=== PATIENT | female | born 1980 | race African-American/Black ===

== ENCOUNTER 2024-05-01 19:12 | Emergency (ER) | payer OTHER ==
[~2024-05-01] VITALS: Ht 165.1 cm; Wt 59.0 kg
[2024-05-01 19:15] VITALS: O2SAT 97
[2024-05-01] MEDS: DIPHENHYDRAMINE 50MG/ML VIAL IM STA (19:50)
[2024-05-01] MEDS: HALOPERIDOL LACTATE 5MG/ML VIAL IM STA (19:50)
[2024-05-01 20:34] LABS: BASOPHILS % 0.3 % (0.0-2.0); EOSINOPHILS % 0.1 % (0.0-5.0); HEMOGLOBIN. 14.6 g/dL (12.0-16.0); MEAN CORPUSCULAR HEMOGLOBIN 32.7 pg (28.0-32.0); MEAN CORPUSCULAR HGB CONC 33.9 g/dL (31.0-37.0); MEAN CORPUSCULAR VOLUME 96.5 fL (81.0-99.0); MONOCYTES % 5.8 % (2.0-8.0); NEUTROPHILS % 69.8 % (40.0-76.0); PLATELET 325 x1000/uL (130-400); RED BLOOD CELL COUNT 4.46 mill/uL (4.2-5.4); RED CELL DISTRIBUTION WIDTH 13.5 % (11.6-14.6)
[2024-05-01 20:40] LABS: CHLORIDE 101 mEq/L (98-107); CLARITY URINE CLOUDY (CLEAR); COLOR URINE DARK YELLOW (YELLOW); GLUCOSE URINE NEGATIVE (NEGATIVE); KETONES URINE TRACE (NEGATIVE); LEUKOCYTE ESTERASE URINE NEGATIVE (NEGATIVE); NITRITE URINE NEGATIVE (NEGATIVE); OCCULT BLOOD URINE NEGATIVE (NEGATIVE); PH URINE 5.5 (4.5-8.0); POTASSIUM 4.2 mEq/L (3.5-5.1); PROTEIN URINE 1+ (NEGATIVE); SODIUM 139 mEq/L (136-145); SPECIFIC GRAVITY URINE 1.022 (1.005-1.030)
[2024-05-01 20:41] LABS: CALCIUM 9.7 mg/dL (8.7-10.4); CARBON DIOXIDE 22 mEq/L (21-32)
[2024-05-01 20:46] LABS: CREATININE 0.6 mg/dL (0.6-1.0); GLUCOSE 83 mg/dL (70-105); HCG SCREEN NEGATIVE; UREA NITROGEN BLOOD 8 mg/dL (9-23)
[2024-05-01 20:47] LABS: ETHANOL BLOOD 131 mg/dL (<10)
[2024-05-01 20:48] LABS: ACETAMINOPHEN < 2 ug/mL (10-30)
[2024-05-01 20:54] LABS: *AMPHETAMINES SCREEN URINE NEGATIVE (NEGATIVE); *BARBITURATES SCREEN URINE NEGATIVE (NEGATIVE); *BENZODIAZEPINES SCREEN URINE PRESUMPTIVE POSITIVE (NEGATIVE); *COCAINE SCREEN URINE NEGATIVE (NEGATIVE); BACTERIA URINE 2+; CANNABINOID URINE SCREEN PRESUMPTIVE POSITIVE (NEGATIVE); ECSTASY MDMA SCREEN URINE NEGATIVE (NEGATIVE); METHADONE URINE SCREEN NEGATIVE (NEGATIVE); OPIATES URINE SCREEN NEGATIVE (NEGATIVE); PHENCYCLIDINE URINE SCREEN NEGATIVE (NEGATIVE); SQUAMOUS EPITHELIAL CELL URINE 1+ /lpf (RARE/1+)
[2024-05-01 20:55] LABS: MUCUS URINE 2+ /lpf (< = 2+); RBC URINE 0-2 /hpf (0-2); WBC URINE 0-2 /hpf (0-2); YEAST URINE FEW
[2024-05-01] MEDS: LEVETIRACETAM 1000MG PREMIX 100 ML IV ONE (22:49)
[2024-05-01] MEDS: LORAZEPAM 2MG/ML INJ IV ONE (22:49)
[2024-05-02] MEDS: LEVETIRACETAM 500MG TABLET PO SCH (09:00)
[2024-05-02] MEDS: OLANZAPINE 5MG TABLET PO SCH (13:16)
[2024-05-02 13:55] VITALS: BP 128/86; PULSE 89; RESP 19; TEMP 36.5; O2SAT 97
== END 2024-05-02 13:58 ==
LOC: ER 19:29
DX: F29 Unspecified psychosis not due to a substance or known physiological condition (principal); F31.2 Bipolar disorder, current episode manic severe with psychotic features; Z98.890 Other specified postprocedural states; Z20.822 Contact with and (suspected) exposure to COVID-19; Z79.899 Other long term (current) drug therapy
CPT/HCPCS: 80305; 80048; 81003; 80307; 80329; 80320; 84703; 85025; 36415; 70450; 96372; 96374; 96375; 99285; 87426; J1953; J1200; J1630; J2060; Z7610 ×3; G0480

== ENCOUNTER 2024-10-13 18:38 | Emergency (ER) | payer MEDICAID, OTHER ==
[~2024-10-13] VITALS: Ht 165.1 cm; Wt 59.0 kg
[2024-10-13 18:42] VITALS: O2SAT 98
[2024-10-13] MEDS: DIPHENHYDRAMINE 50MG/ML VIAL IM ONE (18:58)
[2024-10-13] MEDS: HALOPERIDOL LACTATE 5MG/ML VIAL IM ONE (18:59)
[2024-10-13 20:34] LABS: HEMATOCRIT. 38.5 % (36.0-48.0); HEMOGLOBIN. 13.8 g/dL (12.0-16.0); MEAN PLATELET VOLUME 9.0 fl (7.4-10.4); PLATELET 259 x1000/uL (130-400); RED BLOOD CELL COUNT 4.16 mill/uL (4.2-5.4); RED CELL DISTRIBUTION WIDTH 12.7 % (11.6-14.6)
[2024-10-13 20:44] LABS: HCG SCREEN NEGATIVE
[2024-10-13 20:48] LABS: CREATININE 0.8 mg/dL (0.6-1.0); ETHANOL BLOOD < 10 mg/dL (<10); UREA NITROGEN BLOOD 19 mg/dL (9-23)
[2024-10-13 20:49] LABS: LYMPHOCYTES % MANUAL 6.0 % (20.0-60.0); MONOCYTES % MANUAL 3.0 % (2.0-8.0); NEUTROPHILS % MANUAL 91.0 % (45.0-75.0); PLATELET ESTIMATE NORMAL
[2024-10-13 20:50] LABS: ASPARTATE AMINOTRANSFERASE 46 IU/L (<34); BILIRUBIN DIRECT 0.2 mg/dL (<=3.0); BILIRUBIN TOTAL 0.9 mg/dL (0.1-1.0); PROTEIN TOTAL 8.3 g/dL (6.0-8.3)
[2024-10-14 04:47] LABS: CLARITY URINE TURBID (CLEAR); COLOR URINE DARK YELLOW (YELLOW); GLUCOSE URINE NEGATIVE (NEGATIVE); KETONES URINE 3+ (NEGATIVE); LEUKOCYTE ESTERASE URINE 2+ (NEGATIVE); NITRITE URINE NEGATIVE (NEGATIVE); OCCULT BLOOD URINE NEGATIVE (NEGATIVE); PH URINE 6.0 (4.5-8.0); PROTEIN URINE 1+ (NEGATIVE); SPECIFIC GRAVITY URINE 1.034 (1.005-1.030); UROBILINOGEN URINE 1.0 E.U./dL (0.2-1.0)
[2024-10-14 05:19] LABS: *AMPHETAMINES SCREEN URINE NEGATIVE (NEGATIVE); *BARBITURATES SCREEN URINE NEGATIVE (NEGATIVE); *BENZODIAZEPINES SCREEN URINE NEGATIVE (NEGATIVE); *COCAINE SCREEN URINE PRESUMPTIVE POSITIVE (NEGATIVE); METHADONE URINE SCREEN NEGATIVE (NEGATIVE); OPIATES URINE SCREEN NEGATIVE (NEGATIVE)
[2024-10-14 05:20] LABS: CANNABINOID URINE SCREEN PRESUMPTIVE POSITIVE (NEGATIVE); ECSTASY MDMA SCREEN URINE NEGATIVE (NEGATIVE); PHENCYCLIDINE URINE SCREEN NEGATIVE (NEGATIVE)
[2024-10-14 07:43] LABS: SQUAMOUS EPITHELIAL CELL URINE 1+ /lpf (RARE/1+)
[2024-10-14 07:46] LABS: RBC URINE 0-2 /hpf (0-2)
[2024-10-14 07:47] LABS: BACTERIA URINE 3+
[2024-10-14] MEDS: OLANZAPINE 5MG TABLET ODT PO SCH (19:39)
[2024-10-14] MEDS: TRAZODONE HCL 50MG TABLET PO SCH (21:00)
[2024-10-15 15:09] VITALS: BP 126/86; PULSE 84; RESP 16; TEMP 36.9; O2SAT 96
== END 2024-10-15 15:12 ==
LOC: ER 18:38
DX: F29 Unspecified psychosis not due to a substance or known physiological condition (principal); F20.9 Schizophrenia, unspecified; F31.9 Bipolar disorder, unspecified; F10.90 Alcohol use, unspecified, uncomplicated; F12.90 Cannabis use, unspecified, uncomplicated; Z79.899 Other long term (current) drug therapy; Y90.9 Presence of alcohol in blood, level not specified; Z20.822 Contact with and (suspected) exposure to COVID-19
CPT/HCPCS: 80076; 80305; 80048; 81003; 80307; 80329; 80320; 84703; 85025; 87086; 36415; 96372; 99291; 87426; J1200; J1630; Z7610 ×2; G0480